=== PATIENT | male | born 1970 | race Caucasian/White ===

== ENCOUNTER 2018-08-15 16:15 | Inpatient (IN) | payer OTHER ==
[~2018-08-15] VITALS: Ht 182.9 cm; Wt 113.4 kg
--- NOTE | 2018-08-15 20:00 | NUR ---
Pre-Admission Note Assessment done in intake office. Px doesn't appears intoxicated but appears anxious. Px is A&Ox4. He is ambulatory with steady gait. He has clear and audible speech. He is here for medically supervised withdrawal from Benzos and ETOH. Px denies any hx of withdrawal-induced seizure. He has allergies from metoclopramide and mustard. VS are as follows BP= 119/79, ME= 88, RR= 18, T= 96.5, O2sat= 94% on RA. Unit protocols explained. Px verbalized understanding. Admission process will continue in the unit.
[2018-08-15 21:00] VITALS: BP 132/82
--- NOTE | 2018-08-15 21:00 | NUR ---
CIWA 13 On assessment, px appears anxious. He stated that his anxiety is 5/10. He also complains of back ache of 5/10, sweats, very mild pins and needles on BLE. Mild hand tremors are present. will continue to monitor
--- NOTE | 2018-08-15 21:00 | NUR ---
Admission Note Pete is 48 y/o male being admitted for medically supervised withdrawal from Benzos and ETOH. Px does not appear intoxicated and he is currently experiencing withdrawals. He stated that his last intake of ETOH-[place] was 2 oz at 1PM, Valium of 5 mg PO this morning at 9AM and 350 mg x 3 tablets of SOMA at 3PM. He is anxious but cooperative. He stated that his anxiety is about 5/10. A&Ox4. Speech is clear and audible. He is ambulatory and has steady gait. Px states that withdrawal from these drugs typically include sweats, diarrhea, H/A, hand tremors, pins & needles on feet and high anxiety. Px denies any hx of withdrawal-induced seizure or blackouts. Pete states that he was admitted in [facility] this February 2018 for opiate use. He was prescribed opiates pain medications for his back pain complaints in 2001. He was also prescribed Valium and SOMA on the same year. He was on oral opiate pain medications from 2001 to 2008. Pete had series of surgical operations on his spine. 1st was in 2003. 2nd was in the same year due to infection. Last was in 2013. He was prescribed Dilaudid pump that stopped him from taking oral opiate pain medications in 2008. On February 2018, Dilaudid pump was dysfunctional that gave him opiate withdrawals like N/V, anxiety, stomach cramps, tremors and body aches. Pete was free from opiate use after a period of 5-day detox in [facility]. Px substance use are as follows: 1. Valium- Px takes an average of 30 mg PO daily. He states that sometimes he takes less than 30 mg and sometimes more than 30 mg PO. Px is using Valium for 16 years now. He started to take this drug in 2001. Since then, he didnt stop taking it. He was prescribed Valium due to his anxiety. Last time he took the drug was this morning, 5 mg PO. He never had a chance to be sober. 2. SOMA- Px takes 350 mg PO x 6 tablets daily more or less. Px is using SOMA for 16 years now. He also started taking this drug in 2001. Since then, he didnt stop taking it. He was prescribed SOMA due to his complaint of back pain. Last time he took the drug early this afternoon, 350 mg x 3 tablets PO. He never had a chance to be sober. 3. ETOH- [place]- He drinks 200 ml daily from April 2018, so approximately 3-4 mos. He started to drink occasionally when he was 18 y/o. Pete denies any dependence on ETOH but got hooked into daily drinking few months after his recovery from opiate use. Pete admits that he is just compensating his sobriety from opiates into drinking. Pete states I came here today to get off of Valium, SOMA and ETOH. [facility] referred me here in [place] then my helped me to come here. His is his primary supporter. Pete is currently unemployed but he served the [employer]. 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 Originally, pete is planning to go home after detox but is willing to complete a program in rehabilitation center if that could help him in his recovery. VS are as follows BP= 132/82, IL= 89, RR=18, T=97.8, O2sat= 96% on RA. He complaints of back pain 5/10. Pulse is regular. Respirations are even and unlabored. Lung roberson are clear. Bowel sounds are active on all quadrants. Pete follows regular diet at home. He is allergic to Metoclopramide and Mustard. He stands at 6 and weighs 250 lbs. on standing scale. Pete denies cigarette smoking. He has PMH of surgical operations on spine, DVT but cant recall when, non-active asthma, non-active ulcer, Tylenol toxicity in 2008, and anxiety. Pete was educated about the plan of care including detox, group and individual therapy and D/C planning. Pete was encouraged to be open and honest for a successful recovery.
[2018-08-15] MEDS ORDERED: [UNRECOGNIZED DRUG - OTHER] (21:26)
[2018-08-15] MEDS ORDERED: fixodent (21:26)
[2018-08-15] MEDS ORDERED: LORAZEPAM 1 MG TABLET PO PRN (21:30)
[2018-08-15] MEDS ORDERED: MAGNESIUM HYDROXIDE 30 ML LIQUID UDC PO PRN (21:30)
[2018-08-15] MEDS ORDERED: CLONIDINE HCL 0.1 MG TABLET PO PRN (21:30)
[2018-08-15] MEDS ORDERED: MAG HYDROX/AL HYDROX/SIMETH 30 ML LIQUID UDC PO PRN (21:30)
[2018-08-15] MEDS ORDERED: THIAMINE HCL 200 MG/2 ML VIAL IM ONE (21:30)
[2018-08-15] MEDS ORDERED: ONDANSETRON ODT 4 MG TAB.RAPDIS SL PRN (21:30)
[2018-08-15] MEDS ORDERED: MIRALAX 17 GM POWD.PACK PO PRN (21:30)
[2018-08-15] MEDS ORDERED: LOPERAMIDE HCL 2 MG CAPSULE PO PRN ×2 (21:30)
[2018-08-15] MEDS ORDERED: IBUPROFEN 600 MG TABLET PO PRN (21:30)
[2018-08-15] MEDS ORDERED: PHENOBARBITAL 60 MG TABLET PO ONE (21:30)
[2018-08-15] MEDS ORDERED: HYDROXYZINE PAMOATE 25 MG CAPSULE PO PRN (21:30)
[2018-08-15] MEDS ORDERED: diphenhydrAMINE 50 MG CAPSULE PO PRN (21:30)
[2018-08-15] MEDS ORDERED: LORAZEPAM 2 MG/1 ML VIAL IM PRN (21:30)
[2018-08-15 22:01] LABS: *AMPHETAMINE, URINE NEGATIVE (NEGATIVE); *BARBITURATE, URINE NEGATIVE (NEGATIVE); *CANNABINOID, URINE NEGATIVE (NEGATIVE); *COCCAINE, URINE NEGATIVE (NEGATIVE); *OPIATE, URINE NEGATIVE (NEGATIVE); *PHENCYCLIDINE SCREEN,URINE NEGATIVE (NEGATIVE)
[2018-08-15] MEDS ORDERED: TRAZODONE 50 MG TABLET PO ONE (22:30)
--- NOTE | 2018-08-15 22:33 | NUR ---
1x dose medications Px received Phenobarbital 60 mg PO for anxiety and agitation and Trazodone 50 mg for insomnia. will continue to monitor
[2018-08-15 23:03] LABS: BASOPHILS % (AUTO) 0.4 % (0.0-2.0); EOSINOPHILS # (AUTO) 0.2 K/uL (0.0-0.7); EOSINOPHILS % (AUTO) 2.4 % (0.0-7.0); HEMATOCRIT 47.2 % (36.7-47.1); HEMOGLOBIN 15.8 g/dL (12.5-16.3); LYMPHOCYTES # (AUTO) 2.1 K/uL (20.0-40.0); LYMPHOCYTES % (AUTO) 27.9 % (20.5-51.5); MEAN CORPUSCULAR HEMOGLOBIN 28.5 uug (23.8-33.4); MEAN CORPUSCULAR HGB CONC 34 g/dL (32.5-36.3); MEAN CORPUSCULAR VOLUME 85.1 fL (73.0-96.2); MONOCYTES # (AUTO) 0.6 K/uL (2.0-10.0); MONOCYTES % (AUTO) 7.4 % (0.0-11.0); NEUTROPHILS # (AUTO) 4.6 K/uL (1.8-8.9); NEUTROPHILS % (AUTO) 61.9 % (38.5-71.5); PLATELET COUNT (AUTO) 236 K/uL (152-348); RED BLOOD CELL COUNT(AUTO) 5.54 MIL/uL (4.06-5.63); WHITE BLOOD COUNT (AUTO) 7.5 K/uL (3.6-10.2)
--- NOTE | 2018-08-15 23:40 | NUR ---
1x dose Phenobarbital and Trazodone reassessment Reassessment of anxiety deferred due to the px is asleep. Trazodone was effective. will continue to monitor
[2018-08-16] VITALS: BP_SYST 123; BP_SYST 129; BP_DIAS 79; BP_DIAS 80
[2018-08-16 00:05] LABS: ETHANOL < 3 MG/DL (0-0)
[2018-08-16 00:41] LABS: ALANINE AMINOTRANSFERASE 33 U/L (16-63); ALKALINE PHOSPHATASE 87 U/L (50-136); AMYLASE 32 U/L (25-115); ASPARTATE AMINOTRANSFERASE 24 U/L (15-37); BILIRUBIN,TOTAL 0.5 mg/dL (0.2-1.0); CARBON DIOXIDE 24 mmol/L (21-32); CHLORIDE 102 mmol/L (98-107); CREATININE 1.1 mg/dL (0.6-1.3); GLUCOSE 159 mg/dL (74-106); LIPASE 78 U/L (73-393); MAGNESIUM 1.9 mg/dL (1.8-2.4); POTASSIUM 3.5 mmol/L (3.5-5.1); TOTAL PROTEIN, SERUM 7.9 g/dL (6.4-8.2); UREA NITROGEN, BLOOD 11 mg/dL (7-18)
[2018-08-16 04:00] VITALS: BP 126/81
--- NOTE | 2018-08-16 04:00 | NUR ---
CIWA deferred CIWA deferred at 0000 and 0400 due to the px is asleep, to reassess if the px is awake per doctor's order. will continue to monitor
[2018-08-16 04:59] LABS: THYROID STIMULATING HORMONE 1.254 mIU/mL (0.358-3.740)
--- NOTE | 2018-08-16 07:05 | NUR ---
End of Shift Note During the shift at 2233, px received 1x dose of Phenobarbital 60 mg PO for increased anxiety and agitation and Trazodone 50 mg PO for insomnia. Trazodone was effective. Px is on PRN Ativan. No taper order yet. Px slept for 8 hours. Oral intake of 1400 ml, voided 2x, No BM. Last CIWA 13. Bed on lowest position, side rails up 2x and call light within reach. Px endorsed to AM shift nurse.
--- NOTE | 2018-08-16 07:30 | NUR ---
Start Of Shift Pt. is a 48 y/o male admitted for the medically managed withdrawal from Benzodiazepines (Valium), carisoprodol and ETOH ([place]). Pt. was placed on a Phenobarbital taper to manage withdrawal symptoms. Endorse from previous shift pt. presented with anxiety and agitation. Pt. was given PRN Trazodone last night for anxiety. Last CIWA of 13. Received pt. room. Pt. laying in bed with eyes closed. Pt.s room is cluttered with open food containers. Pt.s bed is in the lowest position with two side rails up. Safety measures in place. Will continue to monitor pt.s behavior for safety.
[2018-08-16 08:00] VITALS: BP 115/60
--- NOTE | 2018-08-16 08:00 | NUR ---
CIWA Assessment CIWA of 14. Pt. in room laying in bed and presents with Restlessness, Anxiety, tremors, and irritability. Pt. will be given taper medication as ordered. Will continue to monitor pt.'s behavior for safety.
[2018-08-16] MEDS: MULTIVITAMINS,THERAPEUTIC TABLET PO SCH (08:47)
[2018-08-16] MEDS: PHENOBARBITAL 60 MG TABLET PO SCH ×4 (08:47→21:19)
[2018-08-16] MEDS: FOLIC ACID 1 MG TABLET PO SCH (08:47)
[2018-08-16] MEDS: THIAMINE HCL 100 MG TABLET PO SCH (08:47)
[2018-08-16] MEDS ORDERED: 6 DAY PHENOBARBITAL TAPER -SERENITY PROTOCOL PO PRN (09:00)
[2018-08-16] MEDS ORDERED: TUBERCULIN,PURIF.PROT.DERIV. 5 TU/0.1 ML TEST ID ONE (09:00)
[2018-08-16 12:00] VITALS: BP 119/76
--- NOTE | 2018-08-16 12:00 | NUR ---
CIWA Assessment CIWA of 14. Pt. sitting on the chair in his room and presents with Restlessness, Anxiety, tremors, and irritability. Pt. compliant with medication regiment. Will continue to monitor pt.'s behavior for safety.
[2018-08-16 16:00] VITALS: BP 122/83
--- NOTE | 2018-08-16 16:00 | NUR ---
CIWA Assessment CIWA of 14. Pt. standing in his room and presents with Restlessness, Anxiety, tremors, and irritability. Pt. compliant with medication regiment and treatment plan. Will continue to monitor pt.'s behavior for safety.
--- NOTE | 2018-08-16 19:25 | NUR ---
End Of Shift Pt. is a 48 y/o male admitted for the medically managed withdrawal from Benzodiazepines (Valium), and ETOH ([place]). Pt. was placed on a Phenobarbital taper to manage withdrawal symptoms. Throughout shift pt. presented with restlessness, anxiety, tremors and agitation. No PRN medications given during shift. Pt. compliant with medication regiment and treatment plan. Pt.s bed is in the lowest position with two side rails up. Safety measures in place. Will endorse pt.s care to oncoming shift.
--- NOTE | 2018-08-16 19:30 | NUR ---
Start of Shift Note Received a 48 y/o male px, admitted for medically supervised withdrawal from Valium, SOMA and ETOH. Px was placed on 6 day Phenobarbital taper started this morning 08/16/2018 and it will end on 08/21/2018. Px is tolerating it so far. Last CIWA reported by AM shift nurse is 14. During the rounds at 1930, px is awake inside his room sitting on the bed. Px appears calm. Px is unshaven. He states that his anxiety is 3/10 and has back ache of 3/10. No more complaints made. Bed on lowest position, side rails up 2x and call light within reach. Well continue to monitor
[2018-08-16 20:00] VITALS: BP 139/84
--- NOTE | 2018-08-16 20:00 | NUR ---
CIWA 9 Upon assessment, px is awake inside his room sitting on the bed. He appears calm. He states that his anxiety is 3/10 and has back ache of 3/10. Mild bilateral hand tremors noted. will continue to monitor
[2018-08-17] VITALS: BP 128/82
[2018-08-17 04:00] VITALS: BP 122/79
--- NOTE | 2018-08-17 07:05 | NUR ---
End of Shift Note During the shift, no PRN medication given. Px slept for 9 hours. Oral intake of 1200 ml, voided 3x, No BM. Last CIWA 9. Bed on lowest position, side rails up 2x and call light within reach. Px endorsed to AM shift nurse.
--- NOTE | 2018-08-17 07:25 | NUR ---
Start Of Shift Pt. is a 48 y/o male admitted for the medically managed withdrawal from Benzodiazepines (Valium), and ETOH ([place]). Pt. was placed on a Phenobarbital taper to manage withdrawal symptoms. During the previous shift pt. presented with restlessness, anxiety, tremors and agitation. No PRN medications given during previous shift. Received pt. in room. Pt. in bed with the linens pulled over his head. Pt.'s respirations are even and symmetrical with not distress noted. Pt.s bed is in the lowest position with two side rails up. Safety measures in place. Will continue to monitor pt.'s behavior for safety.
[2018-08-17 08:00] VITALS: BP 131/83
--- NOTE | 2018-08-17 08:00 | NUR ---
CIWA Assessment CIWA of 9. Pt. in his room laying on his bed. Pt. presents with headache, agitation, diaphoresis, anxiety and agitation. Will administer medications as ordered. Will continue to monitor pt.'s behavior for safety.
[2018-08-17] MEDS: PHENOBARBITAL 60 MG TABLET PO SCH ×3 (08:43→21:00)
[2018-08-17] MEDS: THIAMINE HCL 100 MG TABLET PO SCH (08:43)
[2018-08-17] MEDS: FOLIC ACID 1 MG TABLET PO SCH (08:44)
[2018-08-17] MEDS: MULTIVITAMINS,THERAPEUTIC TABLET PO SCH (08:44)
[2018-08-17 11:06] LABS: HEPATITIS B SURFACE AG Negative (Negative)
[2018-08-17 12:00] VITALS: BP 127/86
--- NOTE | 2018-08-17 12:00 | NUR ---
CIWA Assessment CIWA of 9. Pt. in his room laying on his bed. Pt. presents with headache, agitation, diaphoresis, anxiety and agitation. Pt. compliant with medication regiment. Will continue to monitor pt.'s behavior for safety.
--- NOTE | 2018-08-17 13:22 | NUR ---
Therapist prompted client to attend group therapy.
[2018-08-17 16:00] VITALS: BP 139/87
--- NOTE | 2018-08-17 16:00 | NUR ---
CIWA Assessment CIWA of 8. Pt. in his room laying on his bed. Pt. presents with headache, agitation, diaphoresis, anxiety and agitation. Pt. refused his 1500 dose of phenobarbital stating "I don't need it." Pt. educated on the risks of missing a dose of his taper medication. Pt. still refused. aware. Will continue to monitor pt.'s behavior for safety.
--- NOTE | 2018-08-17 19:00 | NUR ---
End Of Shift Pt. is a 48 y/o male admitted for the medically managed withdrawal from Benzodiazepines (Valium), and ETOH ([place]). Pt. was placed on a Phenobarbital taper to manage withdrawal symptoms. Pt. refused his 1500 dose of Phenobarbital today. MD aware. Pt. presented with restlessness, anxiety, tremors and agitation. No PRN medications given during previous shift. Pt.s bed is in the lowest position with two side rails up. Safety measures in place. Will endorse pt.'s care to oncoming shift.
--- NOTE | 2018-08-17 19:30 | NUR ---
Start of shift Patient is a 48 year old male admitted on 08/15/2018. Patient was admitted at [facility] for medically supervision of ETOH, Soma and Valium withdrawal. Patient is on a 6 day Phenobarbital taper. Patient is on Fall an Seizure precautions. Per endorsement patient did not have any PRN's on day shift. Patients last CIWA is 8. Upon rounds patient was observed lying in bed watching tv. Patient denies withdrawal symptoms. Patient is noted to be withdrawn, anxious, flat affect, depressed and worried. Medication for 2100 were reviewed with patient and he declined the medication. Patient stated "I am not feeling any withdrawal symptoms, I dont want any medications." Safety measures in place, bed locked in low position, side rails up x2, call light within reach. Will continue to monitor.
--- NOTE | 2018-08-17 20:00 | NUR ---
CIWA Assessment Patient is presenting with s/s of withdrawal: tremors, sweats and chills and anxiety. Patients CIWA =8. Respirations are even and unlabored. Safety measure in place. Will continue to monitor.
[2018-08-17 20:14] VITALS: BP 142/73
[2018-08-18] VITALS: BP 116/68
--- NOTE | 2018-08-18 | NUR ---
CIWA Deferred Patient was noted in bed resting with eyes closed, breathing even and unlabored. Per protocol CIWA is to be assessed while awake. Safety measures in place. Will continue to monitor.
[2018-08-18 04:00] VITALS: BP 112/72
--- NOTE | 2018-08-18 07:30 | NUR ---
Start of Shift Broadcast Meteorologist received report on 48 year old male admitted to [facility] on 08/15/18 for medical management of ETOH, Benzodiazepine and Soma withdrawals. Pt endorses allergies to Metoclpramide and mustard, full code and regular diet. Pt endorses PMH of asthma, ulcers and a history of DVT. PPH of anxiety. Pt currently on a Phenobarbital taper, but has been refusing medications, with last CIWA 8, per NOC report. No PRN medications administered on NOC, per report. Broadcast Meteorologist encounters pt in pts room with pt resting. Pt is A/O x4 and makes needs known. Linear thought process and clear speech pattern. Pt with a blunted affect and depressed mood. Pt with complaints of post nasal drip and associated discomfort. Pt is anxious, restless and tremulous. Bed in low position, with wheels locked and side rails up x2. Will continue to monitor, support and encourage according to plan of care.
--- NOTE | 2018-08-18 07:34 | NUR ---
End of shift Patient is a 48 year old male admitted on 08/15/2018. Patient was admitted at [facility] for medically supervision of ETOH, Soma and Valium withdrawal. Patient is on a 6 day Phenobarbital taper. Patient is on Fall an Seizure precautions. Per endorsement patient did not have any PRN's on day shift. Patients last CIWA is 8. Patient slept 8 hours and had a total intake of 2565 ml. Voided 3x and had no bowel movements. Patient decline 2100 medications and stated "I am not feeling any withdrawal symptoms, I dont want any medications." Safety measures in place, bed locked in low position, side rails up x2, call light within reach. Will endorse to day shift.
--- NOTE | 2018-08-18 08:00 | NUR ---
CIWA 9 Pt is anxious and restless, tremulous and diaphoretic with complaints of post nasal drip. Will continue to monitor, support and encourage according to plan of care.
[2018-08-18 08:02] VITALS: BP 112/72
[2018-08-18] MEDS: PHENOBARBITAL 60 MG TABLET PO SCH ×2 (09:00→13:00)
[2018-08-18] MEDS: MULTIVITAMINS,THERAPEUTIC TABLET PO SCH (09:04)
[2018-08-18] MEDS: FOLIC ACID 1 MG TABLET PO SCH (09:04)
[2018-08-18] MEDS: THIAMINE HCL 100 MG TABLET PO SCH (09:05)
--- NOTE | 2018-08-18 12:56 | NUR ---
CIWA 10 Pt is anxious and restless with moist skin and tremors. Will continue to monitor, support and encourage according to plan of care.
[2018-08-18 13:23] VITALS: BP 141/84
[2018-08-18 16:30] VITALS: BP 140/62
--- NOTE | 2018-08-18 16:30 | NUR ---
CIWA 9 Pt is anxious, restless, with moist skin, tremors and tachycardia. Will continue to monitor, support and encourage according to plan of care.
--- NOTE | 2018-08-18 18:38 | NUR ---
End of Shift Top Lift Nailer provided report on 48 year old male admitted to [facility] on 08/15/18 for medical management of ETOH, Benzodiazepine and Soma withdrawals. Pt endorses allergies to Metoclpramide and mustard, full code and regular diet. Pt endorses PMH of asthma, ulcers and a history of DVT. PPH of anxiety. Pts Phenobarbital taper has been discontinued in preparation of pts potential discharge tomorrow. Last CIWA 9. No PRN medications administered on this shift. Pt has refused to take the Phenobarbital today, denying symptoms of withdrawal. Pt is tremulous, anxious, restless and has moist skin. Pt is A/O x4 and makes his needs known. Normal affect with congruent mood. Linear thought process and clear speech pattern. Pt has been visible and social on the unit. Pt walks the hallways with peers and attends groups. Bed in low position, with wheels locked and side rails up x2. Addendum: 08/18/18 at 1900 by ASHER EUCEDA RN LE: Pt was administered Motrin(pain) as PRN medication this shift
--- NOTE | 2018-08-18 18:57 | NUR ---
PRN Syd Pt complained of pain, headache, 3/10 and requested medication before the pain became severe, news writer administered per michael wit hpt toleratign well. Will continue to monitor, support and encourage according to plan of care.
--- NOTE | 2018-08-18 19:30 | NUR ---
Start of shift Patient is a 48 year old male admitted on 08/15/2018. Patient was admitted at [facility] for medically supervision of ETOH, Soma and Valium withdrawal. Patient was on a 6 day Phenobarbital taper but it was discontinue today 08/18/2018. Patient is set for discharge for 08/19/2018. Patient is on Fall an Seizure precautions. Per endorsement patient had PRN Motrin. Patients last CIWA is 9. Upon rounds patient was noted in bed watching tv. Patient stated medication was effective. Safety measures in place, bed locked in low position, side rails up x2, call light within reach. Will continue to monitor.
--- NOTE | 2018-08-18 19:57 | NUR ---
PRN Motrin Reassessment Patient was noted in bed watching tv, and he states his headache went away. Patient stated 0/10 and said medication was effective. Safety measures in place, will continue to monitor.
[2018-08-18 20:00] VITALS: BP 126/81
--- NOTE | 2018-08-18 20:00 | NUR ---
CIWA Assessment Patients CIWA is 8. Patient is presenting with s/s of withdrawal: mild tremors, anxiety, agitation, and mild sweats. Breathing even and unlabored. Safety measure in place. Will continue to monitor.
[2018-08-19] VITALS: BP 114/75
--- NOTE | 2018-08-19 | NUR ---
CIWA Assessment Patient is presenting with s/s of withdrawal: mild tremors, anxiety, agitation, and mild sweats. Patient CIWA is 7. Breathing even and unlabored. Safety measure in place. Will continue to monitor.
[2018-08-19 04:00] VITALS: BP 106/62
--- NOTE | 2018-08-19 07:09 | NUR ---
End of shift Patient is a 48 year old male admitted on 08/15/2018. Patient was admitted at [facility] for medically supervision of ETOH, Soma and Valium withdrawal. Patient is set for discharge for today 08/19/2018. Patient is on Fall an Seizure precautions. Patient did get any PRN medications during this shift. Patients last CIWA is 7. Patient slept 6 hours and had a total intake of 3,000 ml. Voided x3 and had x1 bowel movements. Respirations are even and unlabored. Safety measures in place, bed locked in low position, side rails up x2, call light within reach. Will endorse to day shift.
--- NOTE | 2018-08-19 07:29 | NUR ---
Start of shift note; Received report from night nurse. Patient is AOX4, 48 year old male admitted on 08/15/18 for Benzodiazepine and Alcohol withdrawals. Patient presented with intermittent sweats, anxiety, avoidant to eye contact, tremors and fatigue. Patient was placed on a Phenobarbital taper, completed without any adverse reactions. Patient is medically cleared for discharge today, to be transferred home. All safety measures secured. Will continue to monitor patient.
[2018-08-19 08:00] VITALS: BP 122/70
[2018-08-19] MEDS: THIAMINE HCL 100 MG TABLET PO SCH (08:28)
[2018-08-19] MEDS: MULTIVITAMINS,THERAPEUTIC TABLET PO SCH (08:28)
[2018-08-19] MEDS: FOLIC ACID 1 MG TABLET PO SCH (08:28)
[2018-08-19] MEDS ORDERED: PHENOBARBITAL 60 MG TABLET PO SCH (09:00)
--- NOTE | 2018-08-19 09:41 | NUR ---
Discharge note; Patient is AOX4, patient is medically cleared for discharge today. All valuables, belongings returned to patient. Patient completed treatment without any adverse reactions. Patient left the facility on 08/19/18.Patient denies S/I or H/I. Patient left in a stable condition. Met all needs.
[2018-08-20] MEDS ORDERED: PHENOBARBITAL 60 MG TABLET PO SCH (09:00)
[2018-08-21] MEDS ORDERED: PHENOBARBITAL 60 MG TABLET PO SCH (09:00)
== END 2018-08-19 09:41 | disposition home or self-care (01) | DRG 895 ==
LOC: SRC 19:17
PROVIDERS: ADMIT Family Medicine Addiction Medicine; ATTEND Family Medicine Addiction Medicine
PROC: HZ2ZZZZ Detoxification Services for Substance Abuse Treatment (ICD-10-PCS; principal; 2018-08-15)
PROC: HZ41ZZZ Group Counseling for Substance Abuse Treatment, Behavioral (ICD-10-PCS; 2018-08-16)
PROC: HZ31ZZZ Individual Counseling for Substance Abuse Treatment, Behavioral (ICD-10-PCS; 2018-08-17)
DX: F10.230 Alcohol dependence with withdrawal, uncomplicated (principal); F11.23 Opioid dependence with withdrawal; Y90.0 Blood alcohol level of less than 20 mg/100 ml; F41.1 Generalized anxiety disorder; Z81.1 Family history of alcohol abuse and dependence; Z98.890 Other specified postprocedural states; Z86.718 Personal history of other venous thrombosis and embolism; Z87.11 Personal history of peptic ulcer disease; F32.9 Major depressive disorder, single episode, unspecified; F13.239 Sedative, hypnotic or anxiolytic dependence with withdrawal, unspecified
CPT/HCPCS: 36415; 70030-TC; 80307; 80346; 83690; 83735; 84443; 85025; 86580; 86592; 86705; 86803; 87340; 87806; G0480; J3411; J8499

== ENCOUNTER 2019-11-11 10:20 | Emergency (ER) | payer OTHER ==
[~2019-11-11] VITALS: Ht 188 cm; Wt 106.6 kg
[~2019-11-11 10:20] MED LIST: [UNRECOGNIZED DRUG - OTHER]; fixodent
--- NOTE | 2019-11-11 10:35 | NUR ---
ERMD at bedside for MSE
--- NOTE | 2019-11-11 10:42 | NUR ---
Patient discharged to home in stable conditon. Written and verbal after care instructions given. Patient verbalizes understanding of instructions. Patient ambulated with stable gait.
[2019-11-11 12:09] VITALS: BP 129/89
== END 2019-11-11 10:42 | disposition home or self-care (01) ==
LOC: ER 10:20
DX: M54.14 Radiculopathy, thoracic region (principal); M54.6 Pain in thoracic spine; Z88.8 Allergy status to other drugs, medicaments and biological substances; Z91.018 Allergy to other foods; Z79.899 Other long term (current) drug therapy
CPT/HCPCS: A4663